=== PATIENT | male | born 1950 | race Caucasian/White ===

== ENCOUNTER 2018-01-25 05:22 | Day surgery (SDC) | payer MEDICARE, SELFPAY ==
[2018-01-25] VITALS (10 sets, daily range): BP systolic 86–137; BP diastolic 46–80; PULSE 61–72; RESP 16; TEMP 36.5–36.9; O2SAT 91–96; BMI 37.0
--- NOTE | 2018-01-25 | COLBX_PTH ---
PATIENT: CHARLOTTE TA LOC: EN U#:[id number] AGE/SX: 67/M ROOM: RE01/25/[address]: Dr. Daniel Leon MD : 1950 BED: DIS: 01/25/2018 SPEC #: [id number] RECD: 01/25/18 11:14 STATUS: SUAD PAUL #: [id number] ONEIL: 01/25/18 00:[address]: Daniel Leon DEPT: SURGICAL PATHOLOGY RECD BY: Lionel Pappas ENTERED: 01/25/18 13:20 SP TYPE: COLON BX DARA DR: Dr. Juan Mercedes DO Tissues: A - Ascending colon B - Ascending colon C - Transverse colon D - SPLENIC FLEXURE E - Sigmoid colon biopsy Procedures: Surgery Specimen Level IV HEADER OPERATION: Colonoscopy PRE-OP DIAGNOSIS: Screening TISSUE SUBMITTED: A ? Ascending colon polyp biopsy, B - Ascending colon polyp biopsy #2, C ? Polyp mid transverse, D ? Splenic flexure polyp, E ? Sigmoid distal polyp MICROSCOPIC DIAGNOSIS A. Ascending colon polyp, biopsy: Fragments of tubular adenoma. B. Ascending colon polyp #2, biopsy: Fragments of tubular adenoma. C. Mid transverse colon polyp, biopsy: Tubular adenoma. D. Splenic flexure polyp, biopsy: Tubular adenoma. E. Distal sigmoid colon polyp, biopsy: Tubular adenoma. SJ:mariya 01/26/18 MICROSCOPIC DESCRIPTION Slides are reviewed. GROSS DESCRIPTION A - Received in fixative is one container labeled with the patient's name and designated ascending colon polyp biopsy. The specimen consists of multiple irregular fragments of pink-guevara soft tissue that in aggregate measure 0.7 x 0.7 x 0.2 cm. The specimen is totally submitted in one cassette. B - Received in fixative is one container labeled with the patient's name and designated ascending colon polyp biopsy #2. The specimen consists of two irregular fragments of pink-guevara soft tissue measuring 0.5 x 0.3 x 0.2 cm and 0.2 x 0.1 x 0.1 cm. The specimen is totally submitted in one cassette. C - Received in fixative is one container labeled with the patient's name and designated mid transverse polyp. The specimen consists of one irregular fragment of guevara-yellow soft tissue that measures 0.3 x 0.3 x 0.2 cm. The specimen is totally submitted in one cassette. D - Received in fixative is one container labeled with the patient's name and designated splenic flexure polyp. The specimen consists of one irregular fragment of guevara soft tissue that measures 0.5 x 0.4 x 0.2 cm. The specimen is totally submitted in one cassette. E - Received in fixative is one container labeled with the patient's name and designated distal sigmoid polyp. The specimen consists of one irregular fragment of guevara soft tissue that measures 0.7 x 0.4 x 0.2 cm. The specimen is totally submitted in one cassette. / RY:mariya 01/25/18 TC:1 CPT: 34887 x5
--- NOTE | 2018-01-25 06:22 | PCM.HP.STD ---
Problem List (1) Screening for intestinal cancer Status: Acute History of Present Illness Date of Admission: 01/25/18 The patient is a 67 year old M who presents for screening for intestinal cancer. He has never had a previous colonoscopy. There is no personal or family history of colon polyps or colon cancer. He denies bright red blood per rectum or melena. No abdominal pain. No change of weight. No change of bowel habits. He otherwise states that he is enjoying stable health. Past Medical History Allergies No Known Allergies Allergy (Verified 01/19/18 14:27) Home Medications: Ambulatory Orders Medication Instructions Recorded Carvedilol [Coreg (Beta Jose Rafael)] 12.5 mg PO BID 01/26/16 Omeprazole [Prilosec] 20 mg PO DAILY 01/26/16 amlodipine 10 mg tablet 10 mg PO DAILY 30 Days #30 10/14/17 tamsulosin 0.4 mg capsule 0.4 mg PO QHS 30 Days #30 10/14/17 Smoking Status: Former smoker Review of Systems Constitutional: Denies: Weight Change Eyes: Denies: Blurred vision, Vision Change HEENT: Denies: Ear Pain, Eye Pain Cardiovascular: Denies: Chest Pain, Claudication Respiratory: Denies: Cough, Shortness of Breath Gastrointestinal: Denies: Hematemesis, Hematochezia Genitourinary: Denies: Dysuria, Hematuria Musculoskeletal: Denies: Leg Pain Skin: Denies: Jaundice Neurological: Denies: Confusion Psychiatric: Denies: Depression Endocrine: Denies: Change in Body Habitus Hematologic/ Lymphatic: Denies: Easy Bleeding VTE Information - Inpt Only VTE Present on Admission: No Patient Problems: Active and Suspected Problems (Last Updated 10/14/17 @ 13:05 by Sherita Watkins) Screening for intestinal cancer (Acute) - Physical Exam General: Alert, Oriented x3, Cooperative HEENT: Atraumatic Oral: Moist Mucosa Neck: Supple Lungs: Clear to auscultation Cardiovascular: Regular rate Abdomen: Bowel Sounds Present, - - Overweight, not possible to detect internal organs Extremities: No clubbing Skin: No rashes Musculoskeletal: No Tenderness to Palpation of Joints or Extremities Lymphatic: No Cervical, Supraclavicular, or Inguinal Adenopathy Neurological: Cranial nerves II-XII grossly intact Assessment/Plan Active and Suspected Problems (Last Updated 10/14/17 @ 13:05 by Sherita Watkins) Screening for intestinal cancer (Acute) I am recommending the patient a screening colonoscopy with possible biopsy or polypectomy is indicated. He is aware of the technique, benefits, risks, alternatives. He has had an opportunity to ask and have questions answered. He has tolerated his bowel prep. We will proceed with IV sedation as noted. Daniel Leon M.D., F.A.C.S.
--- NOTE | 2018-01-25 07:35 | PCM.OPRPT ---
Problem List (1) Screening for intestinal cancer Status: Acute Report of Operation Date of Procedure: 01/25/18 Pre-Operative Diagnosis: Screening for intestinal cancer Post-Operative Diagnosis: Multiple colonic polyps. Extensive sigmoid and descending diverticulosis. Moderate internal hemorrhoids Surgery/Procedure Performed:: Colonoscopy with cold forcep polypectomy and hot snare polypectomy Description of Surgical Findings:: Timeout and informed consent was obtained. 67-year-old gentleman who never previously had a colonoscopy was taken to the endoscopy room. In aliquots throughout the procedure he received a total of 100 mg Demerol and 4.5 mg of Versed is intravenous sedation. Digital rectal exam demonstrated a 2+ slightly enlarged prostate with no mass lesion. Moderate internal hemorrhoids. Flexible colonoscope inserted the rectum advanced through a tortuous sigmoid colon extensively involved with diverticulosis. The scope was then readily advanced through the transverse colon and nicely advanced to the cecum. Bowel prep was good there was still liquid stool located throughout the colon. The cecum ileocecal valve area was nicely achieved. The scope was withdrawn in the mid ascending colon a 6 mm sessile polyp was identified. This was behind a fold. I was able to use cold forceps to help sample and mostly eradicate that lesion. I advanced the scope back into the cecum and retroflexed and upon so doing found an additional polyp in the mid ascending colon directly hide a mucosal fold. This polyp measured about 10 mm in diameter. Getting access to this was extraordinarily challenging. I was eventually able to get cold forceps in order to sample and markedly diminished that polyp. It was not clear at the completion whether complete removal had been achieved however I could not get any better of an angle at that lesion. Hemostasis was intact. The scope was then carefully withdrawn. In the mid transverse colon a 7 mm sessile polyp was encountered. Hot snare cautery was used to resect and retrieved. The scope was further withdrawn and the splenic flexure a 6 mm sessile polyp was identified this too was removed with hot snare polypectomy. The scope was withdrawn to the descending and sigmoid colon extensively involved with diverticulosis but no signs of acute inflammation. In the distal sigmoid there was one final 6 mm sessile polyp. This also was removed with hot snare polypectomy because with slight amount of bleeding I placed a hemostatic clip on that one. The scope was retroflexed within the rectum anorectal verge inspected hemorrhoidal changes noted. Excess fluid and air was aspirated free the procedure was completed with the patient tolerating it well. Impression Sessile polyps of the mid ascending colon ?2. One possibly incompletely removed. Sessile polyp of the mid transverse colon. Sessile polyp of the splenic flexure. Sessile polyp of the distal sigmoid. Sigmoid and descending diverticulosis Internal hemorrhoids The patient will be notified of pathology results as they become available. The patient has never had a previous colonoscopy. Because of the number of polyps and positioning of the polyps I recommend follow-up colonoscopy at 1 year. Consideration for utilization of a mucosal flattening device will be considered at that setting. This was not available today Medications given at 0702. Scope was inserted 0706. The cecum was reached at 0709. The procedure was completed at 0732. Cc: Dr. Daren Leon M.D., F.A.C.S. Type of Anesthesia:: IV Sedation
== END 2018-01-25 09:05 | disposition home or self-care (01) ==
LOC: EN 05:22 → AC 05:23
PROVIDERS: Family Provider Family Medicine; PCP Family Medicine; Visit Provider Surgery
PROC: 0DJD8ZZ Inspection of Lower Intestinal Tract, Via Natural or Artificial Opening Endoscopic (ICD-10-PCS; CPT 45378; principal; 2018-01-25 06:55)
DX: Z12.11 Encounter for screening for malignant neoplasm of colon (principal); D12.2 Benign neoplasm of ascending colon; D12.5 Benign neoplasm of sigmoid colon; D12.3 Benign neoplasm of transverse colon; K57.30 Diverticulosis of large intestine without perforation or abscess without bleeding; K64.8 Other hemorrhoids; Z87.891 Personal history of nicotine dependence; Z79.899 Other long term (current) drug therapy
CPT/HCPCS: 45380; 88305; 99152; 99153; J7120

== ENCOUNTER → 2018-05-17 13:00 | Outpatient (CLI) | payer MEDICARE, SELFPAY ==
--- NOTE | 2018-05-17 13:02 | RAD_ITS ---
STUDY: X-RAY - LEFT KNEE REASON FOR EXAM: Male, 68 years old. Chronic knee pain. TECHNIQUE: view(s) of the knee. COMPARISON: None. FINDINGS: Mild osteopenia. No effusion. Periarticular soft tissues normal. Minimal joint margin osteophytic lipping of the medial compartment with very slight joint space narrowing. No significant DJD of the lateral or patellofemoral compartments. RAD/Knee 1 or 2 Views IMPRESSION: Minimal DJD medial compartment. No significant DJD lateral patellofemoral compartment. Electronically Signed: Brennan Daniels, at 10:18 EDT Tel , Service support ,
--- NOTE | 2018-05-17 13:05 | RAD_ITS ---
STUDY: X-RAY - RIGHT KNEE REASON FOR EXAM: Male, 68 years old. Chronic knee pain. TECHNIQUE: Frontal and lateral weightbearing view(s) of the knee. COMPARISON: None. FINDINGS: Mild osteopenia. No effusion. There is a small calcification superior to the patella. This could represent an intra-articular chronic synovial or chondral calcification but could also reflect a small sesamoid bone within the quadriceps tendon. There is very slight marginal osteophytic lipping about the patellofemoral articulation. There is no significant degeneration of the medial or lateral compartments. RAD/Knee 1 or 2 Views IMPRESSION: Minimal DJD patellofemoral articulation. No significant DJD medial or lateral compartments. No effusion. Calcified body superior to the patella as discussed above. Greatest dimension approximately 11 mm. Electronically Signed: Brennan Daniels, at 10:21 EDT Tel , Service support ,
== END ==
PROVIDERS: Family Provider Family Medicine; PCP Family Medicine; Visit Provider Family Medicine
DX: M25.561 Pain in right knee (principal); M25.562 Pain in left knee
CPT/HCPCS: 73560

== ENCOUNTER → 2018-05-24 09:07 | Outpatient (CLI) | payer MEDICARE, SELFPAY ==
[2018-05-24 12:01] LABS: Absolute Lymphocyte Count 1.02 X10^3/ul (0.83-4.51); Absolute Neutrophil Count 3.5 X10^3/uL (2.0-7.7); Basophil# 0.03 X10^3/uL; Basophil% 0.6 % (0-1); Eosinophil# 0.28 X10^3/uL; Eosinophils% 5.2 % (0-5); Hematocrit 45.6 % (40-54); Hemoglobin 14.9 g/dl (13.0-16.5); Lymphocyte # 1.02 X10^3/ul (4.0); Lymphocyte % 18.8 % (19-41); Mean Corp Hgb Conc 32.7 g/gl (32-36); Mean Corpuscular Hgb 27.4 pg (27.0-32.0); Mean Platelet Vol. 10.6 fl (6.2-12.0); Monocyte# 0.51 X10^3/uL; Monocyte% 9.4 % (0-10); Neutrophil # 3.53 X10^3/uL (2.7-7.7); Neutrophil % 65.1 % (47-70); Platelet Count 254 K/mm3 (150-450); RBC Distribution Width SD 42.7 fl (35.1-43.9); Red Blood Count 5.43 M/mm3 (4.6-6.2); White Blood Count 5.4 K/mm3 (4.4-11.0)
[2018-05-24 12:04] LABS: POSITIVE COUNT NO; POSITIVE DIFFERENTIAL NO; POSITIVE MORPHOLOGY NO
[2018-05-24 12:14] LABS: AST(SGOT) 14 U/L (15-37); Alanine Aminotransfer ALT/SGPT 30 U/L (16-61); Albumin, Serum 3.7 g/dL (3.2-5.0); Alkaline Phosphatase 67 U/L (45-117); Anion Gap 6 (5-15); BUN 10 mg/dL (7-18); BUN/Creat Ratio 10.8 RATIO (10-20); Calcium,Total 8.7 mg/dL (8.5-10.1); Chloride 104 mmol/L (98-107); Cholesterol 167 mg/dL (200); Creatinine, Serum 0.92 mg/dL (0.70-1.30); EST Glomerular Filtration Rate 86 mL/min (>60); Est Glom Filt Rate - Afr Amer 104 mL/min (>60); Globulin 3.8 g/dL (2.2-4.2); Glucose 120 mg/dL (74-106); High Density Lipoprotein 35 mg/dL; PSA,Total - Annual Screen 1.48 ng/mL (0.00-4.00); Potassium 4.2 mmol/L (3.5-5.1); Protein, Total 7.5 g/dL (6.4-8.2); Sodium Level 138 mmol/L (136-145); Triglycerides 208 mg/dL; Very Low Density Lipoprotein 42 mg/dL (5-40)
[2018-05-28 20:07] LABS: Testosterone, Free 6.84 ng/dL (5.00-21.00)
[2018-05-29 09:08] LABS: Testosterone, % Free 1.89 % (1.50-4.20); Testosterone, Total 362 ng/dL (264-916)
== END ==
PROVIDERS: Family Provider Family Medicine; PCP Family Medicine; Visit Provider Family Medicine
DX: I10 Essential (primary) hypertension (principal); E29.1 Testicular hypofunction; Z12.5 Encounter for screening for malignant neoplasm of prostate
CPT/HCPCS: 36415; 80053; 80061; 84153; 84402; 84403; 85025; G0103

== ENCOUNTER → 2018-11-08 09:32 | Outpatient (CLI) | payer MEDICARE, SELFPAY ==
[2018-11-08 12:43] LABS: Hemoglobin A1c 6.8 % (4.2-6.3)
[2018-11-08 12:47] LABS: Cholesterol 185 mg/dL (200); High Density Lipoprotein 34 mg/dL; Triglycerides 321 mg/dL; Very Low Density Lipoprotein 64 mg/dL (5-40)
== END ==
PROVIDERS: Family Provider Family Medicine; PCP Family Medicine; Referring Provider Family Medicine; Visit Provider Family Medicine
DX: I10 Essential (primary) hypertension (principal); R73.03 Prediabetes; E78.5 Hyperlipidemia, unspecified; E66.01 Morbid (severe) obesity due to excess calories
CPT/HCPCS: 36415; 80061; 83036

== ENCOUNTER 2019-04-21 05:29 | Day surgery (SDC) | payer MEDICARE, SELFPAY ==
[2019-04-21] VITALS (8 sets, daily range): BP systolic 105–134; BP diastolic 62–84; PULSE 60–64; RESP 16–18; TEMP 36.7–36.9; O2SAT 93–97; BMI 34.6
--- NOTE | 2019-04-21 06:30 | HP.PCM_ITS ---
Problem List (1) Personal history of colonic polyps Status: Acute History of Present Illness Date of Admission: 04/21/19 The patient is a 68 year old M who has a personal history of colon polyps. Just over one year ago he had a colonoscopy performed by myself. I removed 5 separ ate polyps including adenomas at that time. He has progressed well. He currently is asymptomatic. No bright red blood per rectum or melena. No abdominal pain. He denies chest pain he is otherwise been in good health. He has not had any unexpected weight loss. There is no family history of colon cancer. Past Medical History Medical History: Medical History (Last Updated 10/14/17 @ 13:05 by Sherita Watkins) Arthritis M19.90 Hypertension I10 Allergies No Known Allergies Allergy (Verified 04/18/19 10:19) Home Medications: Ambulatory Orders Medication Instructions Recorded Carvedilol [Coreg (Beta Jose Rafael)] 12.5 mg PO BID 01/26/16 Omeprazole [Prilosec] 20 mg PO DAILY 01/26/16 amlodipine 10 mg tablet 10 mg PO DAILY 30 Days #30 10/14/17 tamsulosin 0.4 mg capsule 0.4 mg PO QHS 30 Days #30 10/14/17 Smoking Status: Former smoker Review of Systems Constitutional: Denies: Anorexia HEENT: Denies: Difficulty Swallowing Cardiovascular: Denies: Chest Pain Respiratory: Denies: Cough Gastrointestinal: Denies: Abdominal Pain, Hematochezia, Melena Endocrine: Denies: Change in Body Habitus VTE Information - Inpt Only VTE Present on Admission: No Patient Problems: Active and Suspected Problems (Last Updated 10/14/17 @ 13:05 by Sherita Watkins) Personal history of colonic polyps (Acute) - Physical Exam General: Alert, Oriented x3, Cooperative, No apparent distress HEENT: Atraumatic Oral: Moist Mucosa Neck: Supple Lungs: Clear to auscultation, Normal air movement Cardiovascular: Regular rate, Regular Rhythm Abdomen: Bowel Sounds Present, Soft, Non Tender, Obese Psych/Mental Status: Normal Affect Vital Signs Temp Pulse Resp BP Pulse Ox 98.1 F 64 16 118/64 97 04/21/19 06:09 04/21/19 06:09 04/21/19 06:09 04/21/19 06:09 04/21/19 06:09 Oxygen Delivery Method Room Air Weight: 248 lb 0.321 oz Body Mass Index (BMI) 34.6 Assessment/Plan All Active Problems (Last Updated 10/14/17 @ 13:05 by Sherita Watkins) Screening for intestinal cancer (Acute) Personal history of colonic polyps (Acute) Lumbar strain (Acute) Allergic conjunctivitis (Acute) I recommended the patient a surveillance colonoscopy with possible biopsy or polypectomy is indicated. He is aware of the technique, benefits, risks, alternatives. He has had an opportunity to ask and have questions answered. He presents via our open access program today Daniel Leon M.D., F.A.C.S.
--- NOTE | 2019-04-21 07:00 | COLBX_PTH ---
PATIENT: CHARLOTTE TA LOC: EN U#:[id number] AGE/SX: 68/M ROOM: RE04/21/[address]: Dr. Daniel Leon MD : 1950 BED: DIS: 04/21/2019 SPEC #: [id number] RECD: 04/21/19 09:32 STATUS: SUAD PAUL #: [id number] ONEIL: 04/21/19 07:[address]: Daniel Leon DEPT: SURGICAL PATHOLOGY RECD BY: Joey Steinberg ENTERED: 04/21/19 10:17 SP TYPE: COLON BX OTHR DR: Dr. Juan Mercedes, DO Tissues: POLYP Procedures: Surgery Specimen Level IV HEADER OPERATION: Colonoscopy - open access (MOD) PRE-OP DIAGNOSIS: Screening, history colon polyps TISSUE SUBMITTED: Rectal polyp MICROSCOPIC DIAGNOSIS Rectal polyp, biopsy: Fragments of tubular adenoma. SJ:mariya 04/24/19 MICROSCOPIC DESCRIPTION Slides are reviewed. GROSS DESCRIPTION Received in fixative is one container labeled with the patient's name and designated rectal polyp. The specimen consists of a single guevara-pink polypoid fragment of mucosal-lined soft tissue measuring 0.4 x 0.2 x 0.2 cm. The specimen is totally submitted in one cassette. / CE:mariya 04/21/19 TC:1 CPT: 23407
--- NOTE | 2019-04-26 10:44 | OP.ENDO_ITS ---
04/26/2019 Juan Mercedes [address] [place] [address] Re : Colonoscopy procedure for Jermaine Mcmillan Dear Dr. Mercedes This procedure was performed on Sunday, April 21, 2019. My impressions and recommendations are as follows: Impressions : - Internal hemorrhoids that prolapse with straining, but spontaneously regress to the resting position (Grade II) found on digital rectal exam. - One 7 mm polyp in the rectum, removed with a cold snare. Resected and retrieved. - Diverticulosis in the sigmoid colon. - The examination was otherwise normal. Recommendations : - Discharge patient to home. - Resume previous diet. - Continue present medications. - Telephone my office for pathology results in 1 week. - Repeat colonoscopy in 5 years for surveillance based on pathology results. My findings are described in the full procedure note, which is enclosed. If I can be of further assistance, please feel free to contact me at Doctor phone number(s): Work: . Sincerely, Daniel Leon MD 04/21/2019 7:35:01 AM This report has been signed electronically.
== END 2019-04-21 08:11 | disposition home or self-care (01) ==
LOC: EN 05:30 → AC 05:32
PROVIDERS: Family Provider Family Medicine; PCP Family Medicine; Referring Provider Family Medicine; Visit Provider Surgery
PROC: 0DJD8ZZ Inspection of Lower Intestinal Tract, Via Natural or Artificial Opening Endoscopic (ICD-10-PCS; CPT 45378; principal; 2019-04-21 06:55)
DX: Z12.11 Encounter for screening for malignant neoplasm of colon (principal); D12.8 Benign neoplasm of rectum; K64.1 Second degree hemorrhoids; K57.30 Diverticulosis of large intestine without perforation or abscess without bleeding; Z86.010 Personal history of colon polyps; I10 Essential (primary) hypertension; M19.90 Unspecified osteoarthritis, unspecified site; Z87.891 Personal history of nicotine dependence; Z79.899 Other long term (current) drug therapy
CPT/HCPCS: 45380; 88305; 99152; 99153; J7120

== ENCOUNTER → 2020-04-23 09:34 | Outpatient (CLI) | payer MEDICARE, SELFPAY ==
[2019-04-21 06:09] VITALS: BMI 34.6
[2020-04-23 12:04] LABS: Absolute Neutrophil Count 3.1 X10^3/uL (2.0-7.7); Basophil# 0.03 X10^3/uL; Basophil% 0.6 % (0-1); Eosinophil# 0.27 X10^3/uL; Eosinophils% 5.8 % (0-5); Hematocrit 48.5 % (40-54); Hemoglobin 15.3 g/dL (13.0-16.5); Lymphocyte % 19.4 % (19-41); Mean Corp Hgb Conc 31.5 g/dL (32-36); Mean Corpuscular Hgb 27.6 pg (27.0-32.0); Mean Corpuscular Volume 87.5 fL (80-94); Mean Platelet Vol. 10.1 fl (6.2-12.0); Monocyte# 0.37 X10^3/uL; NRBC Flagged by Analyzer 0 % (0-5); Neutrophil # 3.05 X10^3/uL (2.7-7.7); Neutrophil % 65.8 % (47-70); Platelet Count 235 K/mm3 (150-450); RBC Distribution Width CV 13.9 % (11.6-14.6); Red Blood Count 5.54 M/mm3 (4.6-6.2); White Blood Count 4.6 K/mm3 (4.4-11.0)
[2020-04-23 12:23] LABS: Microalbumin:Creatinine Ratio 110.7 mg/g CRE (<30 mg/g CRE)
[2020-04-23 12:24] LABS: Hemoglobin A1c 6.2 % (3.8-5.6)
[2020-04-23 12:28] LABS: ALB/GLOB Ratio 1.1 RATIO (0.9-2.4); AST(SGOT) 12 U/L (15-37); Alanine Aminotransfer ALT/SGPT 30 U/L (16-61); Alkaline Phosphatase 67 U/L (45-117); Anion Gap 6 (5-15); BUN 11 mg/dL (7-18); BUN/Creat Ratio 11.7 RATIO (10-20); Calcium,Total 8.8 mg/dL (8.5-10.1); Chloride 107 mmol/L (98-107); Cholesterol 194 mg/dL (200); Creatinine, Serum 0.94 mg/dL (0.70-1.30); EST Glomerular Filtration Rate 84 mL/min (>60); Est Glom Filt Rate - Afr Amer 102 mL/min (>60); Globulin 3.7 g/dL (2.2-4.2); Glucose 132 mg/dL (74-106); High Density Lipoprotein 36 mg/dL; Potassium 3.9 mmol/L (3.5-5.1); Protein, Total 7.7 g/dL (6.4-8.2); Sodium Level 139 mmol/L (136-145); Triglycerides 240 mg/dL; Very Low Density Lipoprotein 48 mg/dL (5-40)
[2020-04-30 11:09] LABS: Testosterone, Free 6.66 ng/dL (5.00-21.00)
[2020-04-30 15:41] LABS: Testosterone, % Free 1.73 % (1.50-4.20); Testosterone, Total 385 ng/dL (264-916)
== END ==
PROVIDERS: PCP Family Medicine; Referring Provider Family Medicine; Visit Provider Family Medicine
DX: I10 Essential (primary) hypertension (principal); R73.03 Prediabetes; E29.1 Testicular hypofunction; Z51.81 Encounter for therapeutic drug level monitoring
CPT/HCPCS: 36415; 80053; 80061; 82043; 82570; 83036; 84402; 84403; 85025

== ENCOUNTER → 2021-01-07 09:01 | Outpatient (CLI) | payer MEDICARE, SELFPAY ==
[2019-04-21 06:09] VITALS: BMI 34.6
[2021-01-07 10:42] LABS: Hemoglobin A1c 9.6 % (3.8-5.6)
[2021-01-07 10:47] LABS: AST(SGOT) 14 U/L (15-37); Alanine Aminotransfer ALT/SGPT 34 U/L (16-61); Albumin, Serum 3.8 g/dL (3.2-5.0); Alkaline Phosphatase 71 U/L (45-117); Anion Gap 7 (5-15); BUN 15 mg/dL (7-18); BUN/Creat Ratio 15.9 RATIO (10-20); Chloride 99 mmol/L (98-107); Cholesterol 186 mg/dL (200); Creatinine, Serum 0.94 mg/dL (0.70-1.30); EST Glomerular Filtration Rate 84 mL/min (>60); Est Glom Filt Rate - Afr Amer 101 mL/min (>60); Globulin 3.7 g/dL (2.2-4.2); Glucose 283 mg/dL (74-106); High Density Lipoprotein 38 mg/dL; PSA,Total - Annual Screen 1.94 ng/mL (0.00-4.00); Potassium 3.9 mmol/L (3.5-5.1); Protein, Total 7.5 g/dL (6.4-8.2); Sodium Level 133 mmol/L (136-145); Triglycerides 497 mg/dL
[2021-01-07 11:00] LABS: Microalbumin:Creatinine Ratio 633.6 mg/g CRE (<30 mg/g CRE)
== END ==
PROVIDERS: PCP Family Medicine; Referring Provider Family Medicine; Visit Provider Family Medicine
DX: I10 Essential (primary) hypertension (principal); R73.03 Prediabetes; E78.1 Pure hyperglyceridemia; R80.9 Proteinuria, unspecified; Z12.5 Encounter for screening for malignant neoplasm of prostate
CPT/HCPCS: 36415; 80053; 80061; 82043; 82570; 83036; 84153; G0103

== ENCOUNTER → 2021-04-07 09:18 | Outpatient (CLI) | payer MEDICARE, SELFPAY ==
[2019-04-21 06:09] VITALS: BMI 34.6
[2021-04-07 12:40] LABS: Hemoglobin A1c 6.9 % (3.8-5.6)
[2021-04-07 12:44] LABS: Cholesterol 204 mg/dL (200); High Density Lipoprotein 39 mg/dL; Triglycerides 227 mg/dL; Very Low Density Lipoprotein 45 mg/dL (5-40)
[2021-04-07 12:46] LABS: Microalbumin:Creatinine Ratio 123.5 mg/g CRE (<30 mg/g CRE)
== END ==
PROVIDERS: PCP Family Medicine; Referring Provider Family Medicine; Visit Provider Family Medicine
DX: E11.21 Type 2 diabetes mellitus with diabetic nephropathy (principal); E78.1 Pure hyperglyceridemia
CPT/HCPCS: 36415; 80061; 82043; 82570; 83036

== ENCOUNTER → 2021-07-08 09:01 | Outpatient (CLI) | payer MEDICARE, SELFPAY ==
[2021-07-08 10:31] LABS: Hemoglobin A1c 6.1 % (3.8-5.6)
[2021-07-08 10:46] LABS: Microalbumin:Creatinine Ratio 175.2 mg/g CRE (<30 mg/g CRE)
[2021-07-08 10:50] LABS: ALB/GLOB Ratio 0.9 RATIO (0.9-2.4); AST(SGOT) 14 U/L (15-37); Alanine Aminotransfer ALT/SGPT 30 U/L (16-61); Albumin, Serum 3.6 g/dL (3.2-5.0); Alkaline Phosphatase 49 U/L (45-117); Anion Gap 7 (5-15); BUN 11 mg/dL (7-18); BUN/Creat Ratio 11.6 RATIO (10-20); Chloride 103 mmol/L (98-107); Cholesterol 123 mg/dL (200); Creatinine, Serum 0.95 mg/dL (0.70-1.30); EST Glomerular Filtration Rate 83 mL/min (>60); Est Glom Filt Rate - Afr Amer 100 mL/min (>60); Glucose 141 mg/dL (74-106); High Density Lipoprotein 46 mg/dL; Protein, Total 7.6 g/dL (6.4-8.2); Sodium Level 138 mmol/L (136-145); Triglycerides 164 mg/dL; Very Low Density Lipoprotein 33 mg/dL (5-40)
== END ==
PROVIDERS: PCP Family Medicine; Referring Provider Family Medicine; Visit Provider Family Medicine
DX: E11.21 Type 2 diabetes mellitus with diabetic nephropathy (principal); I10 Essential (primary) hypertension; R80.9 Proteinuria, unspecified; E78.1 Pure hyperglyceridemia
CPT/HCPCS: 36415; 80053; 80061; 82043; 82570; 83036

== ENCOUNTER 2022-01-08 12:54 | Outpatient (CLI) | payer MEDICARE, SELFPAY ==
[2022-01-08 15:50] LABS: ALB/GLOB Ratio 1.1 RATIO (0.9-2.4); AST(SGOT) 14 U/L (15-37); Alanine Aminotransfer ALT/SGPT 29 U/L (16-61); Albumin, Serum 3.9 g/dL (3.2-5.0); Alkaline Phosphatase 54 U/L (45-117); Anion Gap 9 (5-15); BUN 11 mg/dL (7-18); BUN/Creat Ratio 12.9 RATIO (10-20); Calcium,Total 9.1 mg/dL (8.5-10.1); Chloride 98 mmol/L (98-107); Cholesterol 143 mg/dL (200); Creatinine, Serum 0.85 mg/dL (0.70-1.30); EST Glomerular Filtration Rate 94 mL/min (>60); Est Glom Filt Rate - Afr Amer 113 mL/min (>60); Globulin 3.5 g/dL (2.2-4.2); Glucose 294 mg/dL (74-106); High Density Lipoprotein 40 mg/dL; PSA,Total - Annual Screen 1.79 ng/mL (0.00-4.00); Potassium 4.1 mmol/L (3.5-5.1); Protein, Total 7.4 g/dL (6.4-8.2); Sodium Level 133 mmol/L (136-145); Triglycerides 398 mg/dL; Very Low Density Lipoprotein 80 mg/dL (5-40)
[2022-01-08 15:58] LABS: Hemoglobin A1c 11.4 % (3.8-5.6)
[2022-01-08 16:00] LABS: Microalbumin:Creatinine Ratio 409.5 mg/g CRE (<30 mg/g CRE)
== END 2022-01-08 23:59 | disposition home or self-care (01) ==
LOC: MTLAB 12:54
PROVIDERS: PCP Family Medicine; Referring Provider Family Medicine; Visit Provider Family Medicine
DX: E11.21 Type 2 diabetes mellitus with diabetic nephropathy (principal); I10 Essential (primary) hypertension; Z12.5 Encounter for screening for malignant neoplasm of prostate
CPT/HCPCS: 36415; 80053; 80061; 82043; 82570; 83036; 84153; G0103

== ENCOUNTER → 2022-04-07 | Outpatient (CLI) | payer MEDICARE, SELFPAY ==
[2022-04-07 13:05] LABS: Cholesterol 125 mg/dL (200); High Density Lipoprotein 45 mg/dL; Triglycerides 186 mg/dL; Very Low Density Lipoprotein 37 mg/dL (5-40)
[2022-04-07 13:09] LABS: Hemoglobin A1c 8.3 % (3.8-5.6)
== END | disposition home or self-care (01) ==
LOC: MTLAB 10:45
PROVIDERS: PCP Family Medicine; Referring Provider Family Medicine; Visit Provider Family Medicine
DX: E11.21 Type 2 diabetes mellitus with diabetic nephropathy (principal); E78.1 Pure hyperglyceridemia
CPT/HCPCS: 36415; 80061; 83036

== ENCOUNTER → 2022-07-07 | Outpatient (CLI) | payer MEDICARE, SELFPAY ==
[2022-07-07 12:36] LABS: AST(SGOT) 14 U/L (15-37); Alanine Aminotransfer ALT/SGPT 27 U/L (16-61); Albumin, Serum 3.7 g/dL (3.2-5.0); Alkaline Phosphatase 44 U/L (45-117); Anion Gap 9 (5-15); BUN 11 mg/dL (7-18); BUN/Creat Ratio 12.8 RATIO (10-20); Calcium,Total 8.9 mg/dL (8.5-10.1); Chloride 100 mmol/L (98-107); Cholesterol 139 mg/dL (200); Creatinine, Serum 0.86 mg/dL (0.70-1.30); EST Glomerular Filtration Rate 93 mL/min (>60); Est Glom Filt Rate - Afr Amer 112 mL/min (>60); Globulin 3.7 g/dL (2.2-4.2); Glucose 148 mg/dL (74-106); High Density Lipoprotein 48 mg/dL; Protein, Total 7.4 g/dL (6.4-8.2); Sodium Level 138 mmol/L (136-145); Triglycerides 145 mg/dL; Very Low Density Lipoprotein 29 mg/dL (5-40)
[2022-07-07 13:02] LABS: Hemoglobin A1c 6.5 % (3.8-5.6)
== END | disposition home or self-care (01) ==
LOC: MTLAB 09:44
PROVIDERS: PCP Family Medicine; Referring Provider Family Medicine; Visit Provider Family Medicine
DX: E11.21 Type 2 diabetes mellitus with diabetic nephropathy (principal); I10 Essential (primary) hypertension
CPT/HCPCS: 36415; 80053; 80061; 82043; 82570; 83036

== ENCOUNTER → 2022-12-28 | Outpatient (CLI) | payer MEDICARE, SELFPAY ==
[2022-12-28 15:44] LABS: ALB/GLOB Ratio 1.1 RATIO (0.9-2.4); AST(SGOT) 17 U/L (15-37); Alanine Aminotransfer ALT/SGPT 31 U/L (16-61); Albumin, Serum 3.9 g/dL (3.2-5.0); Alkaline Phosphatase 50 U/L (45-117); Anion Gap 8 (5-15); BUN 13 mg/dL (7-18); BUN/Creat Ratio 15.1 RATIO (10-20); Calcium,Total 9.3 mg/dL (8.5-10.1); Chloride 100 mmol/L (98-107); Cholesterol 135 mg/dL (200); Creatinine, Serum 0.86 mg/dL (0.70-1.30); EST Glomerular Filtration Rate 92 mL/min (>60); Est Glom Filt Rate - Afr Amer 111 mL/min (>60); Globulin 3.4 g/dL (2.2-4.2); Glucose 258 mg/dL (74-106); High Density Lipoprotein 42 mg/dL; Potassium 4.2 mmol/L (3.5-5.1); Protein, Total 7.3 g/dL (6.4-8.2); Sodium Level 136 mmol/L (136-145); Triglycerides 255 mg/dL; Very Low Density Lipoprotein 51 mg/dL (5-40)
[2022-12-28 16:09] LABS: Hemoglobin A1c 10.1 % (3.8-5.6)
[2022-12-28 16:20] LABS: Microalbumin:Creatinine Ratio 673.7 mg/g CRE (<30 mg/g CRE)
== END | disposition home or self-care (01) ==
PROVIDERS: PCP Family Medicine; Visit Provider Family Medicine
DX: E11.21 Type 2 diabetes mellitus with diabetic nephropathy (principal); I10 Essential (primary) hypertension; E78.1 Pure hyperglyceridemia
CPT/HCPCS: 36415; 80053; 80061; 82043; 82570; 83036

== ENCOUNTER → 2023-10-04 | Outpatient (CLI) | payer MEDICARE, SELFPAY ==
[2023-10-04 12:07] LABS: Absolute Lymphocyte Count 0.79 X10^3/uL (0.83-4.51); Absolute Neutrophil Count 2.6 X10^3/uL (2.0-7.7); Basophil# 0.01 X10^3/uL; Basophil% 0.2 % (0-1); Eosinophil# 0.28 X10^3/uL; Eosinophils% 6.8 % (0-5); Hematocrit 47.6 % (40-54); Hemoglobin 15.6 g/dL (13.0-16.5); Lymphocyte # 0.79 X10^3/ul (0.83-4.51); Lymphocyte % 19.2 % (19-41); Mean Corp Hgb Conc 32.8 g/dL (32-36); Mean Corpuscular Hgb 27.5 pg (27.0-32.0); Mean Corpuscular Volume 83.8 fL (80-94); Mean Platelet Vol. 10.7 fl (6.2-12.0); Monocyte# 0.38 X10^3/uL; Monocyte% 9.2 % (0-10); NRBC Flagged by Analyzer 0 % (0-5); Neutrophil # 2.62 X10^3/uL (2.7-7.7); Neutrophil % 63.9 % (47-70); Platelet Count 181 K/mm3 (150-450); RBC Distribution Width CV 13.2 % (11.6-14.6); RBC Distribution Width SD 40.5 fl (35.1-43.9); Red Blood Count 5.68 M/mm3 (4.6-6.2); White Blood Count 4.1 K/mm3 (4.4-11.0)
[2023-10-04 12:36] LABS: ALB/GLOB Ratio 1.1 RATIO (0.9-2.4); AST(SGOT) 19 U/L (15-37); Alanine Aminotransfer ALT/SGPT 26 U/L (16-61); Albumin, Serum 3.7 g/dL (3.2-5.0); Alkaline Phosphatase 52 U/L (45-117); Anion Gap 9 (5-15); BUN 10 mg/dL (7-18); BUN/Creat Ratio 12.5 RATIO (10-20); Calcium,Total 8.6 mg/dL (8.5-10.1); Chloride 101 mmol/L (98-107); Cholesterol 133 mg/dL (200); EST Glomerular Filtration Rate 100 mL/min (>60); Est Glom Filt Rate - Afr Amer 121 mL/min (>60); Globulin 3.4 g/dL (2.2-4.2); Glucose 234 mg/dL (74-106); High Density Lipoprotein 46 mg/dL; Potassium 3.9 mmol/L (3.5-5.1); Protein, Total 7.1 g/dL (6.4-8.2); Sodium Level 136 mmol/L (136-145); Triglycerides 193 mg/dL; Very Low Density Lipoprotein 39 mg/dL (5-40)
== END | disposition home or self-care (01) ==
PROVIDERS: PCP Family Medicine; Referring Provider Family Medicine; Visit Provider Family Medicine
DX: I10 Essential (primary) hypertension (principal); R80.9 Proteinuria, unspecified; E78.1 Pure hyperglyceridemia
CPT/HCPCS: 36415; 80053; 80061; 82043; 82570; 85025

== ENCOUNTER → 2024-06-13 | Outpatient (CLI) | payer MEDICARE, SELFPAY ==
--- NOTE | 2024-06-13 10:17 | RAD_ITS ---
STUDY: X-RAY - CERVICAL SPINE REASON FOR EXAM: Male, 74 years old. Neck pain. TECHNIQUE: 7 view(s) of the cervical spine were obtained. COMPARISON: Cervical spine x-rays dated June 10, 2015 FINDINGS: Osteopenia. Normal anterior atlantoaxial articulation. Normal odontoid process. Normal cervical lordosis. Moderate to marked diffuse uncovertebral and facet sclerosis. Intervertebral disc space narrowing at C3-4, C4-5, C5-6, C6-7 and C7-T1 slightly progressed since the prior study. Anterior bony neural foraminal encroachment bilaterally at C4-5, C5-6 and C6-7. Normal soft tissues. RAD/Cerv Spine Obl/Flex/Ext Comp IMPRESSION: Osteopenia with progression of cervical spondylosis most marked at C4-5, C5-6 and C6-7, as outlined above. Electronically Signed: Mikey Arellano MD at 13:09 EDT ,
== END | disposition home or self-care (01) ==
LOC: MTRAD 10:15
PROVIDERS: PCP Family Medicine; Referring Provider Anesthesiology Pain Medicine; Visit Provider Anesthesiology Pain Medicine
DX: M50.30 Other cervical disc degeneration, unspecified cervical region (principal)
CPT/HCPCS: 72052

== ENCOUNTER → 2024-08-18 | Outpatient (CLI) | payer MEDICARE, SELFPAY ==
--- NOTE | 2024-08-18 10:21 | US_ITS ---
STUDY: US Soft Tissue Back REASON FOR EXAM: : back mass TECHNIQUE: A superficial ultrasound was performed with real-time and static jernigan-scale imaging. COMPARISON: No relevant prior comparison study available FINDINGS: Limited images obtained left back in the area of clinical abnormality palpable lump. No focal mass identified in the region. US/Other Unlisted US Procedure IMPRESSION: No focal mass identified. Electronically Signed: Leti Govea MD at 8:14 EDT ,
--- NOTE | 2024-08-18 10:30 | US_ITS ---
INDICATION: neck mass EXAMINATION: Ultrasound US Head/Neck Soft Tissue TECHNIQUE: Lawson scale and color doppler imaging was performed of the soft tissues of the neck. COMPARISON: No relevant prior comparison study available FINDINGS: Limited images of the area of clinical concern posterior neck on the right area of palpable lump. Localized heterogeneous predominantly isoechoic mass at the site measures 4.7 x 0.9 x 4.1 cm. US/Head/Neck Soft Tissue IMPRESSION: Localized soft tissue mass. MRI may be helpful for further imaging characterization. Electronically Signed: Leti Govea MD at 0:54 EDT ,
--- NOTE | 2024-08-18 10:30 | US_ITS ---
STUDY: SUPERFICIAL ULTRASOUND - LEFT UPPER EXTREMITY REASON FOR EXAM: Male, 74 years old. left arm mass TECHNIQUE: A superficial ultrasound was performed with real-time and static jernigan-scale imaging. COMPARISON: No relevant prior comparison study available FINDINGS: Limited images obtained left upper arm in the area of clinical abnormality palpable lump. Localized heterogeneous mass identified in the region measures 3.2 x 1.1 x 3.1 cm. US/Ext Non Vasc Limited/Soft Tiss IMPRESSION: Heterogeneous soft tissue mass in the area of palpable abnormality. Further evaluation with MRI may be helpful. Electronically Signed: Leti Govea MD at 22:16 EDT ,
== END | disposition home or self-care (01) ==
LOC: US 10:17
PROVIDERS: PCP Family Medicine; Referring Provider Surgery Plastic and Reconstructive Surgery; Visit Provider Surgery Plastic and Reconstructive Surgery
DX: R22.2 Localized swelling, mass and lump, trunk (principal); R22.1 Localized swelling, mass and lump, neck; R22.32 Localized swelling, mass and lump, left upper limb
CPT/HCPCS: 76536; 76882; 76999

== ENCOUNTER 2024-09-06 12:06 | Day surgery (SDC) | payer MEDICARE, SELFPAY ==
[2024-08-28 07:47] LABS: Hematocrit 43.9 % (40-54); Hemoglobin 14.5 g/dL (13.0-16.5); Mean Corpuscular Hgb 28.7 pg (27.0-32.0); Mean Corpuscular Volume 86.9 fL (80-94); Mean Platelet Vol. 9.6 fl (6.2-12.0); Platelet Count 206 K/mm3 (150-450); RBC Distribution Width CV 13.2 % (11.6-14.6); RBC Distribution Width SD 41.4 fl (35.1-43.9); Red Blood Count 5.05 M/mm3 (4.6-6.2); White Blood Count 4.3 K/mm3 (4.4-11.0)
[2024-08-28 08:25] LABS: Anion Gap 8 (5-15); BUN 12 mg/dL (7-18); Calcium,Total 8.9 mg/dL (8.5-10.1); Chloride 104 mmol/L (98-107); Creatinine, Serum 0.92 mg/dL (0.70-1.30); EST Glomerular Filtration Rate 85 mL/min (>60); Est Glom Filt Rate - Afr Amer 103 mL/min (>60); Glucose 207 mg/dL (74-106); Potassium 3.9 mmol/L (3.5-5.1); Sodium Level 138 mmol/L (136-145)
[2024-09-06] VITALS (10 sets, daily range): BP systolic 127–149; BP diastolic 78–95; PULSE 68–81; RESP 16; TEMP 36.3–36.7; O2SAT 94–98; BMI 33.5
[2024-09-06] MEDS: Lactated Ringers 1,000 ML 15 ML IV (13:01)
--- NOTE | 2024-09-06 13:18 | PRE.ANES_ITS ---
ASA Classification* ASA Classification ASA Classification: 2 Assessment & Plan Anesthesia* Anesthesia Assessment Anesthesia Assessment: Discussed sedation and/or anesthesia options, risks, benefits, and alternatives with patient/parents/legal guardian/POA. Questions invited. The patient/parents/legal guardian/POA seems to understand and agrees to proceed with anesthesia plan. Reviewed the physical assessment, medical history, allergy history and patient home medications list prior to surgery/procedure/anesthetic and documented any changes. Performed airway and anesthesia risk assessments. Anesthesia Type Anesthesia Type: General Anesthesia Focused Assessment* Temperature: 98.1 F Pulse Rate: 81 Blood Pressure: 149/79 Respiratory Rate: 16 Pulse Ox: 98 Airway Assessment Mouth opens: >3 cm Mallampati Score: II Focused Labs Anesthesia Preop lab: CBC WBC 4.3 K/mm3 (4.4-11.0) L 08/28/24 06:53 RBC 5.05 M/mm3 (4.6-6.2) 08/28/24 06:53 Hgb 14.5 g/dL (13.0-16.5) 08/28/24 06:53 Hct 43.9 % (40-54) 08/28/24 06:53 Plt Count 206 K/mm3 (150-450) 08/28/24 06:53 CHEMISTRY Potassium 3.9 mmol/L (3.5-5.1) 08/28/24 06:53 Sodium 138 mmol/L (136-145) 08/28/24 06:53 BUN 12 mg/dL (7-18) 08/28/24 06:53 Creatinine 0.92 mg/dL (0.70-1.30) 08/28/24 06:53 Glucose 207 mg/dL (74-106) H 08/28/24 06:53 TSH 1.91 uIU/mL (0.358-3.74) 05/11/17 08:48 COAG Pre-Assessment Diagnosis/Proposed Procedure Planned Operative Procedure(s): Excision of right neck, left back and left arm masses Anesthesia History 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 When Was Last Pacemaker Check QUESTION #4 FULL TEXT: You/Your Family Experience fever (hyperthermia) with Anesthesia Last Oral Intake Last Oral intake: Last Oral Intake NPO since 06:45 09/06/24 12:56 Meds taken in AM with sips of Yes 09/06/24 12:56 water? Meds patient instructed to take am of surgery PONV PONV - hairspring truer: PONV - hairspring truer Female No 08/24/24 11:26 HX of Motion Sickness No 08/24/24 11:26 HX of N/V After Surgery No 08/24/24 11:26 Non-Smoker Yes 08/24/24 11:26 Duration of Surgery greater Yes 08/24/24 11:26 than 60 minutes Number of Risk Factors 2 08/24/24 11:26 PONV Score Moderate Risk 08/24/24 11:26 Height & Weight Height & Weight: Anesthesia: Height & Weight Height 5 ft 11 in 09/06/24 12:56 Weight: 109 kg 09/06/24 12:56 Body Mass Index (BMI) 33.5 09/06/24 12:56 Respiratory Assessment Respiratory Assessment - hairspring truer: Respiratory Tract Infection Hx - hairspring truer Hx Respiratory Tract Infection No: . 08/24/24 11:26 STOP Sleep Apnea STOP Sleep Apnea - hairspring truer: STOP Sleep Apnea - hairspring truer Hx Hypertension Yes: controlled with meds 08/24/24 11:26 Hx Sleep Apnea Yes: CPAP 08/24/24 11:26 CPAP Yes 08/24/24 11:26 BIPAP No 08/24/24 11:26 Do you snore loudly (louder than talking or can be heard Do you often feel tired/ fatigued/ sleepy during daytime? Has anyone observed you stop breathing during sleep? STOP Results Positive 08/24/24 11:26 QUESTION #5 FULL TEXT : Do you snore loudly (louder than talking or can be heard through closed doors)? 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 Specify any problems Hx of Preganancy in last 3 N/A 08/24/24 11:26 Months Nurse Filling Out Transfusion VCHRISTIN 08/24/24 11:26 & Questions: Date: 08/24/24 08/24/24 11:26 Time: 11:27 08/24/24 11:26 Patient unable to answer at this time (ie. confused, unrespo /Reproduction History /Reproductive History - hairspring truer: /Reproductive Hx- hairspring truer Hx Now Gestational Age (in weeks): EDC: Hx Hx Para Hx Section SAB Active Medications Active Medications: Current Medications Generic Name Dose Route Start Last Admin Trade Name Freq PRN Reason Stop Dose Admin Cefazolin Sodium 2 gm/ N/A 20 mls @ 400 mls/hr 09/06/24 14:00 IV 09/06/24 14:02 PREOP ONE Lactated Ringer's 1,000 mls @ 15 mls/hr 09/06/24 13:00 09/06/24 13:01 IV 09/12/24 02:19 15 mls/hr .Q48H RASHIDA Administration Protocol PFSH Medical History Wears glasses Wears dentures History of steroid therapy High cholesterol Gastric reflux Former smoker CPAP (continuous positive airway pressure) dependence Sleep apnea History of echocardiogram History of stress test High triglycerides Diabetes Arthritis Hypertension Home Medications ?Medication ?Instructions ?Recorded ?Last Taken ?Type carvedilol 12.5 mg tablet 12.5 mg PO BID 01/26/16 09/06/24 06:45 History omeprazole 20 mg capsule,delayed 20 mg PO DAILY 04/03/16 11/13/24 06:45 History release amlodipine 10 mg tablet 10 mg PO DAILY 30 days ##30 10/14/17 09/06/24 06:45 History glipizide 5 mg tablet 5 mg PO BID 08/11/24 Unknown History metformin 1,000 mg tablet 1,000 mg PO BID 08/11/24 Unknown History methocarbamol 500 mg tablet 500 mg PO DAILY 08/11/24 09/05/24 12:00 History rosuvastatin 10 mg tablet 10 mg PO QDAY 08/11/24 Unknown History semaglutide 1 mg/dose (2 mg/1.5 1 mg subcut QWEEK 08/11/24 Unknown History mL) subcutaneous pen injector tadalafil 5 mg tablet 5 mg PO QDAY 08/11/24 09/05/24 15:30 History terbinafine HCl 250 mg tablet 250 mg PO QDAY 08/11/24 Unknown History Allergy/AdvReac Type Severity Reaction Status Date / Time No Known Allergies Allergy Verified 09/06/24 12:49 Family History Father Diabetes Social History Smoking Status: Former smoker alcohol intake: never substance use type: does not use Review of Systems (Anesthesia) ROS Narrative System reviewed and no additional complaints, except as documented.
[2024-09-06 13:23] LABS: Bedside Glucose 185 mg/dL (74-106)
--- NOTE | 2024-09-06 14:00 | MASS_PTH ---
PATIENT: CHARLOTTE TA [place] [facility] [id number] AGE/SX: 74/M ROOM: RE09/06/[address]: Dr. Daniel Robbins MD : [id number] BED: DIS: 09/06/2024 SPEC #: [id number] RECD: 09/07/24 07:44 STATUS: SUAD REJyoti #: [id number] ONEIL: 09/06/24 14:[address]: Daniel Robbins DEPT: SURGICAL PATHOLOGY RECD BY: Hermelinda Underwood ENTERED: 09/07/24 09:45 SP TYPE: Mass OTHR DR: Dr. Juan Mercedes DO Tissues: A - Arm, NOS B - Back, NOS C - Neck, NOS Procedures: Surgery Specimen Level IV HEADER OPERATION: Excision of right neck, left back and left arm masses PRE-OP DIAGNOSIS: Mass on back, mass on neck, mass of arm TISSUE SUBMITTED: A- Left arm mass, B- Left back mass, C- Right neck mass MICROSCOPIC DIAGNOSIS A. Soft tissue mass of left arm, excision: Mature adipose tissue consistent with intramuscular lipoma. B. Soft tissue mass of left back, excision: Mature adipose tissue consistent with lipoma. C. Right neck mass, excision: Mature adipose tissue consistent with intramuscular lipoma. AM. 09/08/2024 MICROSCOPIC DESCRIPTION Slides are reviewed. GROSS DESCRIPTION A. Received in fixative is one container labeled with the patient's name and designated Left arm mass. The specimen consists of multiple pieces of yellow adipose tissue measuring in aggregate 2.5 x 2.0 x 0.3cm. The entire specimen is submitted in one cassette. B. Received in fixative is one container labeled with the patient's name and designated Left back mass. The specimen consists of multiple pieces of yellow adipose tissue measuring in aggregate 4.5 x 4.5 x 2.0cm. A few of the pieces show the area of congestion and hemorrhage. Largest piece measures 3.5cm in greatest dimension. Section of this piece reveals yellow adipose cut surfaces without area of hemorrhage, necrosis or cystic degeneration. Fiber Product Cutting Machine Operator sections are submitted in two cassettes. C. Received in fixative is one container labeled with the patient's name and designated Right neck mass. The specimen consists of multiple fragments of yellow adipose tissue measuring in aggregate 4.0 x 4.0 x 2.0cm. Sections reveal yellow adipose cut surfaces without area of necrosis, hemorrhage or cystic degeneration. Fiber Product Cutting Machine Operator sections are submitted in two cassettes. SJ. 09/07/2024 TC:1 CPT:08136b6
--- NOTE | 2024-09-06 14:51 | HP.PCM.SX_ITS ---
HPI - General HPI Narrative CHARLOTTE TA, is a 74 M who presents with multiple masses. Here for excision. [facility] Medical History Wears glasses Wears dentures History of steroid therapy High cholesterol Gastric reflux Former smoker CPAP (continuous positive airway pressure) dependence Sleep apnea History of echocardiogram History of stress test High triglycerides Diabetes Arthritis Hypertension Home Medications ?Medication ?Instructions ?Recorded ?Last Taken ?Type carvedilol 12.5 mg tablet 12.5 mg PO BID 01/26/16 09/06/24 06:45 History omeprazole 20 mg capsule,delayed 20 mg PO DAILY 01/26/16 09/06/24 06:45 History release amlodipine 10 mg tablet 10 mg PO DAILY 30 days ##30 10/14/17 09/06/24 06:45 History glipizide 5 mg tablet 5 mg PO BID 08/11/24 Unknown History metformin 1,000 mg tablet 1,000 mg PO BID 08/11/24 Unknown History methocarbamol 500 mg tablet 500 mg PO DAILY 08/11/24 09/05/24 12:00 History rosuvastatin 10 mg tablet 10 mg PO QDAY 08/11/24 Unknown History semaglutide 1 mg/dose (2 mg/1.5 1 mg subcut QWEEK 08/11/24 Unknown History mL) subcutaneous pen injector tadalafil 5 mg tablet 5 mg PO QDAY 08/11/24 09/05/24 15:30 History terbinafine HCl 250 mg tablet 250 mg PO QDAY 08/11/24 Unknown History Allergy/AdvReac Type Severity Reaction Status Date / Time No Known Allergies Allergy Verified 09/06/24 12:49 Family History Father Diabetes Social History Smoking Status: Former smoker alcohol intake: never substance use type: does not use Vital Signs Vital Signs Vital Signs: 09/06/24 12:56 09/06/24 12:56 09/06/24 13:18 Temperature 98.1 F 98.1 F Temperature Source Temporal Pulse Rate 81 81 Respiratory Rate 16 16 Respiratory Pattern Normal Blood Pressure 149/79 H 149/79 H Blood Pressure Mean 102 Blood Pressure Source Monitor Blood Pressure Position Sitting Blood Pressure Location Right Arm Pulse Ox 98 98 Oxygen Delivery Method Room Air Weight Weight: 240 lb 4.862 oz Body Mass Index (BMI) 33.5 Physical Exam Narrative Details Right neck posterior with mobile, subcutaneous mass about 4 x 5 cm Left upper back with mobile, subQ mass about 3 x 3 cm Left anterior arm with mobile, subQ mass about 2 x 3 cm No palpable lymphadenopathy in the neck or in the axilla bilaterally HENNT: Shrugs his shoulders and turns head from side to side. No numbness over neck skin. Const General: cooperative Resp Effort & Inspection: normal respiratory effort Cardio Rate: regular rate Rhythm: regular rhythm Results Lab / Micro Data 08/28/24 06:53 08/28/24 06:53 Labs: Laboratory Results - last 24 hr 09/06/24 12:47: POC Glucose 185 H Assessment & Plan Assessment/Plan (1) Mass on back: (2) Mass of arm: (3) Mass in neck: PLAN: Plan Masses were marked in preoperative holding. I talked the patient extensively about the risks of surgery, including bleeding, poor scaring, infection, damage to surrounding structures, surgical site dehiscence and wound formation, need for wound care, need for repeat operations, failure to obtain the desired result, DVT/PE, and the risks of anesthesia including . The benefits and alternatives of this surgery were also discussed. All of their questions were answered, and they agreed to proceed with surgery. INTERVAL H&P PLAN, DATE OF SURGERY: We will proceed with surgery today.
--- NOTE | 2024-09-06 15:24 | OP.PCM_ITS ---
Operative Report (Standard) Operative Information Surgery/Procedure Performed: 1) Excision of right neck mass, 3 x 3 cm (CPT 36906) 2) Excision of left back mass, 3 x 3.5 cm (CPT 12513 with 59 Modifier) 3) Excision of left shoulder mass, 2 x 3 (CPT 67568 with 59 Modifier) 4) Intermediate closure of neck wound, 4 cm (CPT 48414) 5) Intermediate closure of back and shoulder wounds, 6 cm (CPT 32862) Surgeon: Daniel Robbins Date of Procedure: 09/06/24 Procedure Start Time: 18:04 Procedure Stop Time: 19:00 Pre-Operative Diagnosis: Likely lipomas of the right neck, left back, left arm Post-Operative Diagnosis: same Select all DRAINS/GRAFTS/IMPLANTS that apply: None Type of Anesthesia: General/Supplemental (20 cc of 0.25%Marcaine with 1:200,000 epinephrine) Estimated Blood Loss: 10 cc Specimen collected: Yes Description of specimen(s) removed: Three masses Description of surgery: INDICATIONS: Patient is a 74 yo male with three separate masses. No history of bleeding or clotting problems. We discussed risks of infection, bleeding, damage to surrounding structures, return of the mass and need for repeat surgeries, healing problems/dehiscence of the wound and need for wound care, and risks from anesthesia. OPERATIVE DETAILS: The patient was correctly identified in preoperative holding, and I marked them (the masses were all confirmed, the patient agreed with the site marking as did his family). They were taken back to the operating room where they were administered general anesthesia and placed in the prone positioning. Care was taken to pad all bony prominences and protect the face and eyes with padding. Once appropriate level of anesthesia was obtained, the site was prepped and draped in sterile fashion. A 15 blade scalpel was used to make a direct incision over the mass on the neck, and dissection was carried out with Bovie electrocautery around the mass which was in the subcutaneous layer. Dissection was carried out with tenotomy scissors around the mass and it was removed. Hemostasis was obtained with Bovie electrocautery. The wound was irrigated with copious amounts of normal saline. It measured 3 x 3 centimeters. The mass was sent to pathology. A 15 blade scalpel was used to make a direct incision over the mass on the left back, and dissection was carried out with Bovie electrocautery around the mass which was in the subcutaneous layer. Dissection was carried out with tenotomy scissors around the mass and it was removed. Hemostasis was obtained with Bovie electrocautery. The wound was irrigated with copious amounts of normal saline. It measured 3 x 3.5 centimeters. The mass was sent to pathology. A 15 blade scalpel was used to make a direct incision over the mass on the left arm, and dissection was carried out with Bovie electrocautery around the mass which was in the subcutaneous layer. Dissection was carried out with tenotomy scissors around the mass and it was removed. Hemostasis was obtained with Bovie electrocautery. The wound was irrigated with copious amounts of normal saline. It measured 2 x 3 centimeters. The mass was sent to pathology. Attention was then turned to intermediate closure of the wounds, which was 3 centimeters long for the arm , 3 cm long for the back, and 4 cm long for the neck. Deep sutures were placed with 3-0 PDS and 3-0 monocryl dermal subcuticular sutures. A local block was then performed with 0.25% Marcaine with 1:200,000 epinephrine (20 cc total of the local). Prineo tape was applied. The patient tolerated the procedure well and was awakened and taken the PACU in stable condition. POST-OPERATIVE PLAN: F/u in clinic in 1 week. O.K. to get Prineo wet in 2 days in shower. Surgical Findings: Three fatty masses, all appearing to be lipomas. Pellet Machine Operator graphic arts technician: No Complications Complications: No Admit VTE Documentation VTE Mechan Device Prophylaxis: SCD's
[2024-09-06] MEDS: Cefazolin 2 GM in Syringe IV (17:58)
[2024-09-06] MEDS: Bupiv/Epi 0.25% 30 ML Vial (18:52)
--- NOTE | 2024-09-06 19:16 | PCM.POST.ANE ---
Anesthesia: Postop Eval I Current Vital Signs Temperature: 97.5 F Pulse Rate: 74 Blood Pressure: 132/84 Respiratory Rate: 16 Pulse Ox: 95 Oxygen Delivery Method: Room Air Assessment Airway patent: Yes Spontaneous unlabored respirations: Yes Mental status: Awake and Calm nausea: No Vomiting: No Anesthesia Complication: No Fluid Hydration Crystalloid volume administer (ml): 800 Total IV fluid infused: 800 Progress Note Anesthesia document: Postop Eval 1 completed: Yes
--- NOTE | 2024-09-06 19:39 | PCM.POSTANE2 ---
Anesthesia Postop Eval I Sum Postop Eval Completion status Anesthesia document: Postop Eval 1 completed: Yes Anesthesia Postop Eval I Summary Anesthesia Postop Eval I Summary: Anesthesia Postop Eval I: Assessment Summary Airway patent Yes 09/06/24 19:26 Spontaneous unlabored Yes 09/06/24 19:26 respirations Mental status Awake,Calm 09/06/24 19:26 nausea No 09/06/24 19:26 Vomiting No 09/06/24 19:26 Anesthesia Postop Eval I: Fluid Summary Crystalloid volume administer 800 09/06/24 19:26 (ml) Colloids volume administered ( ml) Blood Product volume administered (ml) Total IV fluid infused 800 09/06/24 19:26 Anesthesia Postop Eval I: Summary Notes Anesthesia Complication No 09/06/24 19:26 Anesthesia Complication Comment: Post-operative progress note Anesthesia: Postop Eval II Evaluation Mental status: Awake and Calm Pain Level: 0 nausea: No Vomiting: No Complications Anesthesia Complication: No
[2024-09-06 19:49] LABS: Bedside Glucose 170 mg/dL (74-106)
== END 2024-09-06 20:25 | disposition home or self-care (01) ==
LOC: SDC 12:06 → AC 12:07
PROVIDERS: PCP Family Medicine; Referring Provider Surgery Plastic and Reconstructive Surgery; Visit Provider Surgery Plastic and Reconstructive Surgery
PROC: (CPT 11424; principal; 2024-09-06 13:45)
DX: R22.1 Localized swelling, mass and lump, neck (principal); E11.9 Type 2 diabetes mellitus without complications; R22.32 Localized swelling, mass and lump, left upper limb; R22.2 Localized swelling, mass and lump, trunk; I10 Essential (primary) hypertension; K21.9 Gastro-esophageal reflux disease without esophagitis; E78.00 Pure hypercholesterolemia, unspecified; M19.90 Unspecified osteoarthritis, unspecified site; G47.30 Sleep apnea, unspecified; Z79.84 Long term (current) use of oral hypoglycemic drugs; Z79.899 Other long term (current) drug therapy; Z87.891 Personal history of nicotine dependence
CPT/HCPCS: 11424; 12042; 11404 ×2; 12032; 36415; 80048; 82962; 85027; 88305; J7120; J2405

== ENCOUNTER 2024-09-07 17:20 | Emergency (ER) | payer MEDICARE, SELFPAY ==
[2024-09-07 17:20] VITALS: BP 149/86; PULSE 94; RESP 14; TEMP 36.1; O2SAT 96; BMI 33.8
[2024-09-07 17:58] VITALS: BP 145/89; PULSE 78; RESP 16; TEMP 37.2; O2SAT 98
[2024-09-07 18:02] LABS: Bacteria 0 SEEN /hpf (None Seen)
[2024-09-07 18:05] LABS: Color, Urine Yellow (Yellow); Glucose, Dipstick 100 mg/dl (Normal); Ketone-Dipstick Negative (Negative); Leukocyte Esterase-Dipstick Negative /ul (Negative); Nitrite-Dipstick Negative (Negative); Occult Blood-Urine Negative /ul (Negative); Protein-Dipstick 30 mg/dl (Negative); Specific Gravity, Urine 1.015 (1.002-1.030); Urine Bilirubin Dipstick Negative (Negative); Urine Clarity Clear (Clear); Urine Urobilinogen Normal (Normal)
[2024-09-07 18:17] LABS: Hyaline Cast 0-5 SEEN /lpf (0-5); Mucous, Urine 1+ /hpf (<or=2+)
[2024-09-07 18:19] LABS: Red Blood Cells-Urine 0-5 SEEN /hpf (0-5); White Blood Cells 0-5 SEEN /hpf (0-5)
[2024-09-07 18:20] LABS: Squamous Epithelial Cells - UA 0-5 SEEN /hpf (0-5)
--- NOTE | 2024-09-07 18:28 | EX.ED.DYSGE1 ---
HPI History of Present Illness Chief Complaint: Complaint Detail of Chief Complaint: Unable to void completely Informant: patient, spouse/S.O. and family Onset/Context/Timing Onset: Today Context: Sudden Onset Timing: Continuous Quality: Difficulty urinating and fullness suprapubic area Location: Current Severity: Mild Maximum Severity: Mild Worsened by: History of BPH and recent surgery by Dr. Daniel La. Patient had excisio Relieved by: Nothing Associated Symptoms Associated Symptoms: No other symptoms Narrative Narrative: Patient is a 74-year-old male. He has history of BPH. He underwent surgery by Dr. Daniel La yesterday for excision of multiple masses right side of the neck, left back and left shoulder. This was performed under general esthesia. Patient presents because he is unable to void completely. Patient denies dysuria, frequency, urgency or hematuria. Patient denies nausea, vomiting or diarrhea. Patient is on medicine for BPH. He also has history of hypertension, diabetes and hypercholesterolemia. Med list was reviewed. He is on no anticholinergic that would cause this. Suspect this is due to general anesthesia. Prior similar symptoms: Yes Recent Illness/Hospitalization: Yes [facility] Medical History Wears glasses Wears dentures History of steroid therapy High cholesterol Gastric reflux Former smoker CPAP (continuous positive airway pressure) dependence Sleep apnea History of echocardiogram History of stress test High triglycerides Diabetes Arthritis Hypertension Home Medications ?Medication ?Instructions ?Recorded ?Last Taken ?Type carvedilol 12.5 mg tablet 12.5 mg PO BID 01/26/16 09/06/24 06:45 History omeprazole 20 mg capsule,delayed 20 mg PO DAILY 01/26/16 09/06/24 06:45 History release amlodipine 10 mg tablet 10 mg PO DAILY 30 days ##30 10/14/17 09/06/24 06:45 History glipizide 5 mg tablet 5 mg PO BID 08/11/24 Unknown History metformin 1,000 mg tablet 1,000 mg PO BID 08/11/24 Unknown History methocarbamol 500 mg tablet 500 mg PO DAILY 08/11/24 09/05/24 12:00 History rosuvastatin 10 mg tablet 10 mg PO QDAY 08/11/24 Unknown History semaglutide 1 mg/dose (2 mg/1.5 1 mg subcut QWEEK 08/11/24 Unknown History mL) subcutaneous pen injector tadalafil 5 mg tablet 5 mg PO QDAY 08/11/24 09/05/24 15:30 History terbinafine HCl 250 mg tablet 250 mg PO QDAY 08/11/24 Unknown History oxycodone 5 mg tablet 5 mg PO Q8H PRN pain 5 days #14 09/06/24 Unknown Rx tabs Allergy/AdvReac Type Severity Reaction Status Date / Time No Known Allergies Allergy Verified 09/07/24 17:21 Family History Father Diabetes Social History Smoking Status: Former smoker alcohol intake: never substance use type: does not use ROS ROS ED Constitutional Constitutional ED: Denies chills, fever(s), subjective or sweats Gastrointestinal Gastrointestinal: Denies abdominal pain, nausea or vomiting Genitourinary Genitourinary ED: Reports other Details: Difficulty urinating ; Denies dysuria, hematuria or urinary frequency Hematologic/Lymphatic Hematologic/Lymphatic: Reports systems reviewed and no addt'l complaints, except as documented EXAM Physical Exam Const Vital Signs: 09/07/24 17:20 09/07/24 17:58 Temperature 97 F L 98.9 F Temperature Source Temporal Oral Pulse Rate 94 78 Respiratory Rate 14 16 Blood Pressure 149/86 H 145/89 H Blood Pressure Mean 107 107 Pulse Ox 96 98 Oxygen Delivery Method Room Air Room Air Positive well nourished and well developed General Appearance ED: well developed and NAD HEENT Reports moist mucous membranes HEENT Narrative: Head is atraumatic normocephalic. Ears normal. Nares patent. Eyes PERRL and EOMs intact bilaterally Neck no lymphadenopathy and supple Chest Wall inspection of chest normal and palpation of chest normal Resp normal respiratory effort and clear to auscultation bilaterally Cardio regular rate, regular rhythm, S1 normal heart sound, S2 normal heart sound and no murmurs GI normal to inspection, nondistended, normoactive bowel sounds, non-distended and no masses; Negative for non-tender or hepatosplenomegaly GI Narrative: Patient has some fullness in the suprapubic area on palpation. Back/Spine no CVA tenderness Neuro oriented x3 and CN's II-XII intact bilaterally Sensorium / Orientation: alert MDM MDM MDM Narrative Medical decision making narrative: Bladder scan reveals greater than 700 cc of urine. Will obtain BMP to assess renal function and UA to rule out infection. Hernandez was placed. 770 cc of urine drained Lab Data Attestation: I reviewed the patient's lab results. Lab results narrative: Urinalysis is unremarkable. Basic metabolic panel is normal except for blood sugar of 188. Patient does have history of type 2 diabetes. Labs: Laboratory Results - last 24 hr 09/07/24 09/07/24 17:31 18:01 Sodium 139 Potassium 3.8 Chloride 103 Carbon Dioxide 26.0 Anion Gap 10 BUN 13 Creatinine 1.01 Estim Creat Clear Calc 78.56 Est GFR (MDRD) Af Amer 92 Est GFR (MDRD) Non-Af 76 BUN/Creatinine Ratio 12.9 Glucose 188 H Calcium 9.2 Urine Color Yellow Urine Clarity Clear Urine pH 6.0 Ur Specific [place] 1.015 Urine Protein 30 H Urine Glucose (UA) 100 H Urine Ketones Negative Urine Occult Blood Negative Urine Nitrite Negative Urine Bilirubin Negative Urine Urobilinogen Normal Ur Leukocyte Esterase Negative Urine RBC 0-5 SEEN Urine WBC 0-5 SEEN Ur Squamous Epith Cells 0-5 SEEN Urine Bacteria 0 SEEN Hyaline Casts 0-5 SEEN Urine Mucus 1+ Treatment and Re-Evaluation :: Patient and family was made aware of results. To be discharged to home. He is referred to Dr. Bagley for urology. If he is unable to see Dr. Bagley recommend follow-up with Dr. Mercedes to have Hernandez removed in 3 to 5 days. Discharge Plan Triage Chief Complaint: Complaint ED Provider: Johnnie Martinez Dx/Rx/DC Orders Clinical Impression: Acute urinary retention, Type 2 diabetes mellitus with hyperglycemia Instructions: ED Hernandez Catheter, Care, ED Urinary Retention, Male Prescriptions: No Action amlodipine 10 mg tablet 10 mg PO DAILY 30 Days Qty: 30 Patient Comments: TAKE ONE TABLET BY MOUTH EVERY DAY methocarbamol 500 mg tablet 500 mg PO DAILY terbinafine HCl 250 mg tablet 250 mg PO QDAY metformin 1,000 mg tablet 1,000 mg PO BID glipizide 5 mg tablet 5 mg PO BID rosuvastatin 10 mg tablet 10 mg PO QDAY tadalafil 5 mg tablet 5 mg PO QDAY semaglutide 1 mg/dose (2 mg/1.5 mL) pen injector 1 mg subcut QWEEK carvedilol 12.5 MG tablet 12.5 mg PO BID omeprazole 20 MG capsule 20 mg PO DAILY oxycodone 5 mg tablet 5 mg PO Q8H PRN (Reason: pain) 5 Days Qty: 14 0RF Primary Care Provider: Juan Mercedes Referrals: Kalpesh Bagley MD [Med Staff - Active Staff] - 3-5 Days Juan Mercedes DO [Primary Care Provider] - 3-5 Days Print Language: Peruvian Disposition Disposition: Home, Self Care
[2024-09-07 18:39] LABS: Anion Gap 10 (5-15); BUN 13 mg/dL (7-18); BUN/Creat Ratio 12.9 RATIO (10-20); Calcium,Total 9.2 mg/dL (8.5-10.1); Chloride 103 mmol/L (98-107); Creatinine, Serum 1.01 mg/dL (0.70-1.30); EST Glomerular Filtration Rate 76 mL/min (>60); Est Glom Filt Rate - Afr Amer 92 mL/min (>60); Estimated Creatinine Clearance 78.56 ml/min; Glucose 188 mg/dL (74-106); Potassium 3.8 mmol/L (3.5-5.1); Sodium Level 139 mmol/L (136-145)
[2024-09-07 19:02] VITALS: BP 145/89; PULSE 78; RESP 16; TEMP 37.2; O2SAT 98
== END 2024-09-07 19:05 | disposition home or self-care (01) ==
PROVIDERS: Emergency Provider Emergency Medicine; PCP Family Medicine; Visit Provider Emergency Medicine
DX: N40.1 Benign prostatic hyperplasia with lower urinary tract symptoms (principal); E11.65 Type 2 diabetes mellitus with hyperglycemia; R33.8 Other retention of urine; I10 Essential (primary) hypertension; K21.9 Gastro-esophageal reflux disease without esophagitis; E78.00 Pure hypercholesterolemia, unspecified; M19.90 Unspecified osteoarthritis, unspecified site; G47.30 Sleep apnea, unspecified; Z79.84 Long term (current) use of oral hypoglycemic drugs; Z79.899 Other long term (current) drug therapy; Z98.890 Other specified postprocedural states; Z87.891 Personal history of nicotine dependence
CPT/HCPCS: 51702; 80048; 81001; 99283

== ENCOUNTER 2024-09-11 12:23 | Emergency (ER) | payer MEDICARE, SELFPAY ==
[2024-09-11 12:25] VITALS: BP 154/78; PULSE 89; RESP 18; TEMP 36.8; O2SAT 94; BMI 33.6
--- NOTE | 2024-09-11 12:34 | EX.ED.DYSGE1 ---
HPI History of Present Illness Chief Complaint: Complaint Detail of Chief Complaint: Patient was seen on September 07 for acute urinary retention. Informant: patient, spouse/S.O. and family Onset/Context/Timing Onset: Days Context: Sudden Onset Timing: Intermittent Worsened by: Unable to see Dr. Bagley and PCP was uncomfortable removing catheter with n Relieved by: Not applicable Associated Symptoms Associated Symptoms: None Narrative Narrative: Patient is a 74-year-old male. He was seen on September 07 for acute urinary retention. This occurred postoperatively. He presents now because he is unable to be seen until September by Dr. Bagley to have the Hernandez removed. His PCP did not feel comfortable removing the Hernandez in case he develop urinary tension since he does not have Hernandez's in the office. Patient denies fever, chills night sweats. Patient denies any symptoms. Prior similar symptoms: Yes Recent Illness/Hospitalization: Yes [facility] Medical History Wears glasses Wears dentures History of steroid therapy High cholesterol Gastric reflux Former smoker CPAP (continuous positive airway pressure) dependence Sleep apnea History of echocardiogram History of stress test High triglycerides Diabetes Arthritis Hypertension Home Medications ?Medication ?Instructions ?Recorded ?Last Taken ?Type carvedilol 12.5 mg tablet 12.5 mg PO BID 01/26/16 09/06/24 06:45 History omeprazole 20 mg capsule,delayed 20 mg PO DAILY 01/26/16 09/06/24 06:45 History release amlodipine 10 mg tablet 10 mg PO DAILY 30 days ##30 10/14/17 09/06/24 06:45 History glipizide 5 mg tablet 5 mg PO BID 08/11/24 Unknown History metformin 1,000 mg tablet 1,000 mg PO BID 08/11/24 Unknown History methocarbamol 500 mg tablet 500 mg PO DAILY 08/11/24 09/05/24 12:00 History rosuvastatin 10 mg tablet 10 mg PO QDAY 08/11/24 Unknown History semaglutide 1 mg/dose (2 mg/1.5 1 mg subcut QWEEK 08/11/24 Unknown History mL) subcutaneous pen injector tadalafil 5 mg tablet 5 mg PO QDAY 08/11/24 09/05/24 15:30 History terbinafine HCl 250 mg tablet 250 mg PO QDAY 08/11/24 Unknown History oxycodone 5 mg tablet 5 mg PO Q8H PRN pain 5 days #14 09/06/24 Unknown Rx tabs Allergy/AdvReac Type Severity Reaction Status Date / Time No Known Allergies Allergy Verified 09/11/24 12:25 Family History Father Diabetes Social History Smoking Status: Former smoker alcohol intake: never substance use type: does not use ROS ROS ED Constitutional Constitutional ED: Denies chills, fever(s), subjective or sweats Gastrointestinal Gastrointestinal: Denies abdominal pain, nausea or vomiting Genitourinary Genitourinary ED: Reports other Details: Indwelling urethral Hernandez. Hematologic/Lymphatic Hematologic/Lymphatic: Reports systems reviewed and no addt'l complaints, except as documented EXAM Physical Exam Const Vital Signs: 09/11/24 12:25 Temperature 98.2 F Temperature Source Oral Pulse Rate 89 Respiratory Rate 18 Blood Pressure 154/78 H Blood Pressure Mean 103 Pulse Ox 94 Oxygen Delivery Method Room Air Positive well nourished and well developed General Appearance ED: well developed and NAD; Negative for pallor Eyes PERRL and EOMs intact bilaterally Resp normal respiratory effort Cardio regular rate and regular rhythm Neuro oriented x3 and CN's II-XII intact bilaterally Sensorium / Orientation: alert Psych mental status grossly normal Skin no rashes or lesions noted and skin turgor normal General Skin Exam: Negative for pallor MDM MDM MDM Narrative Medical decision making narrative: Patient Hernandez is functioning. He is here to have it removed. Will have nurse remove Hernandez and discharge with appropriate home-going instructions. In my opinion there is no indication for laboratory testing. History & Record Review Additional record(s) reviewed:: Prior ED visit and Prior labs Discharge Plan Triage Chief Complaint: Complaint ED Provider: Johnnie Martinez Dx/Rx/DC Orders Clinical Impression: Encounter for Hernandez catheter removal, H/O urinary retention Instructions: Hernandez Catheter Removal Prescriptions: No Action amlodipine 10 mg tablet 10 mg PO DAILY 30 Days Qty: 30 Patient Comments: TAKE ONE TABLET BY MOUTH EVERY DAY methocarbamol 500 mg tablet 500 mg PO DAILY terbinafine HCl 250 mg tablet 250 mg PO QDAY metformin 1,000 mg tablet 1,000 mg PO BID glipizide 5 mg tablet 5 mg PO BID rosuvastatin 10 mg tablet 10 mg PO QDAY tadalafil 5 mg tablet 5 mg PO QDAY semaglutide 1 mg/dose (2 mg/1.5 mL) pen injector 1 mg subcut QWEEK carvedilol 12.5 MG tablet 12.5 mg PO BID omeprazole 20 MG capsule 20 mg PO DAILY oxycodone 5 mg tablet 5 mg PO Q8H PRN (Reason: pain) 5 Days Qty: 14 0RF Primary Care Provider: Juan Mercedes Referrals: Juan Mercedes DO [Primary Care Provider] - As Needed Print Language: Taiwanese Disposition Disposition: Home, Self Care
== END 2024-09-11 12:55 | disposition home or self-care (01) ==
LOC: ED 12:49
PROVIDERS: Emergency Provider Emergency Medicine; PCP Family Medicine; Visit Provider Emergency Medicine
DX: Z46.6 Encounter for fitting and adjustment of urinary device (principal); E11.9 Type 2 diabetes mellitus without complications; E78.2 Mixed hyperlipidemia; K21.9 Gastro-esophageal reflux disease without esophagitis; G47.30 Sleep apnea, unspecified; M19.90 Unspecified osteoarthritis, unspecified site; Z79.84 Long term (current) use of oral hypoglycemic drugs; Z79.899 Other long term (current) drug therapy; Z87.891 Personal history of nicotine dependence
CPT/HCPCS: 99282

== ENCOUNTER → 2024-12-01 | Outpatient (CLI) | payer MEDICARE, SELFPAY ==
--- NOTE | 2024-12-01 09:35 | RAD_ITS ---
EXAM: XR Lumbosacral Spine, 4 or 5 Views CLINICAL INDICATION: TECHNIQUE: Frontal, lateral and bilateral oblique views of the lumbar spine. COMPARISON: No relevant prior studies available. FINDINGS: VERTEBRAE: Degenerative facet arthropathy throughout the lumbar spine, most prominent in the lower lumbar spine. Normal alignment. No acute fracture. SACRUM/COCCYX: Unremarkable as visualized. No acute fracture. DISC SPACES: Degenerative disc disease throughout the lumbar spine. SOFT TISSUES: Unremarkable. RAD/L/S Spine Comp/w Bending Views IMPRESSION: 1. No acute fracture. 2. Degenerative changes lumbar spine as described. Reading Location: [facility]
== END | disposition home or self-care (01) ==
LOC: RAD 09:28
PROVIDERS: PCP Family Medicine; Referring Provider Anesthesiology Pain Medicine; Visit Provider Anesthesiology Pain Medicine
DX: M51.379 Other intervertebral disc degeneration, lumbosacral region without mention of lumbar back pain or lower extremity pain (principal)
CPT/HCPCS: 72114

== ENCOUNTER → 2025-02-19 | Outpatient (CLI) | payer MEDICARE, SELFPAY ==
[2025-02-19 13:28] LABS: Absolute Lymphocyte Count 0.83 X10^3/uL (0.83-4.51); Absolute Neutrophil Count 2.6 X10^3/uL (2.0-7.7); Basophil# 0.03 X10^3/uL; Basophil% 0.7 % (0-1); Eosinophil# 0.32 X10^3/uL; Eosinophils% 7.6 % (0-5); Hematocrit 38.8 % (40-54); Hemoglobin 12.4 g/dL (13.0-16.5); Lymphocyte # 0.83 X10^3/ul (0.83-4.51); Lymphocyte % 19.6 % (19-41); Mean Corpuscular Hgb 26.4 pg (27.0-32.0); Mean Corpuscular Volume 82.6 fL (80-94); Mean Platelet Vol. 9.9 fl (6.2-12.0); Monocyte# 0.41 X10^3/uL; Monocyte% 9.7 % (0-10); NRBC Flagged by Analyzer 0 % (0-5); Neutrophil # 2.63 X10^3/uL (2.7-7.7); Neutrophil % 62.2 % (47-70); Platelet Count 178 K/mm3 (150-450); RBC Distribution Width CV 13.3 % (11.6-14.6); White Blood Count 4.2 K/mm3 (4.4-11.0)
[2025-02-19 14:56] LABS: ALB/GLOB Ratio 1.6 RATIO (0.9-2.4); AST(SGOT) 15 U/L (<=37); Alanine Aminotransfer ALT/SGPT 12 U/L (<=46); Albumin, Serum 4.2 g/dL (3.4-4.8); Alkaline Phosphatase 55 U/L (40-129); Anion Gap 13 (5-15); BUN 11 mg/dL (4-19); BUN/Creat Ratio 15.1 RATIO (10-20); Carbon Dioxide 22.4 mmol/L (21.0-32.0); Chloride 103 mmol/L (98-108); Cholesterol 142 mg/dL (<=200); Creatinine, Serum 0.75 mg/dL (0.70-1.20); EST Glomerular Filtration Rate 94 (>60); Globulin 2.6 g/dL (2.2-4.2); Glucose 202 mg/dL (70-99); High Density Lipoprotein 35 mg/dL; Low Density Lipoprotein Calc. 62 mg/dL; Potassium 3.9 mmol/L (3.3-5.1); Protein, Total 6.8 g/dL (5.9-8.4); Sodium Level 138 mmol/L (133-145); Total Bilirubin 0.42 mg/dL (0.00-1.30); Triglycerides 222 mg/dL; Very Low Density Lipoprotein 44 mg/dL (5-40); cholesterol:hdl ratio screen 4.03
[2025-02-19 15:01] LABS: Hemoglobin A1c 9.2 % (<=5.6)
== END | disposition home or self-care (01) ==
LOC: BFHLAB 08:57
PROVIDERS: PCP Family Medicine; Visit Provider Family Medicine
DX: E11.21 Type 2 diabetes mellitus with diabetic nephropathy (principal); I10 Essential (primary) hypertension
CPT/HCPCS: 36415; 80053; 80061; 82043; 82570; 83036; 85025